=== PATIENT | male | born 1995 | race Caucasian/White ===

== ENCOUNTER 2017-07-30 19:20 | Emergency (ER) | payer SELFPAY ==
--- NOTE | 2017-07-30 20:50 | CT ---
CT HEAD NONCONTRAST 07/30/17 INDICATION: Seizure. FINDINGS: There is no ventriculomegaly, mass effect, midline shift or acute intracranial hemorrhage. Mild mucos al thickening of the imaged paranasal sinuses present. IMPRESSION: No acute intracranial abnormalities. Should seizure symptoms persists, consider brain MRI for further evaluation. POS: Kevin
[2017-07-30 21:13] LABS: #Eosinphils 0.1 thou/uL (0.0-0.7); #Lymphocytes 1.9 thou/uL (1.20-3.40); #Monocytes 0.7 thou/uL (0.11-0.59); #Neutrophils 3.1 thou/uL (1.40-6.50); %Basophils 0.7 % (0.0-1.0); %Eosinophils 1.3 % (0.0-10.0); %Lymphocytes 33.3 % (21.0-51.0); %Monocytes 11.9 % (0.0-10.0); %Neutrophils 52.7 % (42.0-75.0); Hemoglobin 15.2 g/dL (14.0-18.0); Mean Corpuscular HGB CONC 33.7 g/dL (32.0-36.0); Mean Corpuscular Hemoglobin 32.6 pg (27.0-31.0); Mean Corpuscular Volume 96.8 fl (80.0-94.0); Mean Platelet Volume 8.7 fL (7.4-10.4); Platelet Count 210 thou/uL (130-400); RBC Distribution Width 11.9 % (11.5-14.5); Red Blood Cell (RBC) Count 4.65 mill/uL (4.70-6.10); White Blood Cell (WBC) Count 5.8 thou/uL (4.8-10.8)
[2017-07-30 21:18] LABS: Anion Gap 13 mmol/L (10-20); BUN (Urea Nitrogen) 11 mg/dL (8.9-20.6); Calc. Creatinine Clearance 0 mL/min (70-130); Calcium 9.7 mg/dL (7.8-10.44); Carbon Dioxide 25 mmol/L (22-29); Chloride 104 mmol/L (98-107); Estimated GFR-MDRD Greater than 90; Glucose 112 mg/dL (70-105); Potassium 3.3 mmol/L (3.5-5.1); Sodium 139 mmol/L (136-145)
== END 2017-07-30 23:37 | disposition home or self-care (01) ==
LOC: ERS 19:20
DX: R56.9 Unspecified convulsions (principal)
CPT/HCPCS: 70450; 80048; 84146; 85025; 93005; 94760